=== PATIENT | female | born 1950 | race Asian ===

== ENCOUNTER → 2020-04-07 | Outpatient (CLI) | payer OTHER | LOC: HYPER 09:47 | DX: L84 Corns and callosities (principal); M21.611 Bunion of right foot; M21.612 Bunion of left foot; R60.0 Localized edema; E11.40 Type 2 diabetes mellitus with diabetic neuropathy, unspecified; H91.93 Unspecified hearing loss, bilateral; I10 Essential (primary) hypertension; F09 Unspecified mental disorder due to known physiological condition ==